=== PATIENT | female | born 1945 | race Caucasian/White ===

== ENCOUNTER 2016-09-27 17:20 | Emergency (ER) | payer MEDICARE, BC ==
[2016-09-27 17:49] VITALS: BP 134/58
[2016-09-27] MEDS ORDERED: HYDROMORPHONE HCL INJ/PF 2 MG/ML AMPULE IM ONE (18:24)
[2016-09-27] MEDS ORDERED: ONDANSETRON 4 MG TAB.RAPDIS PO ONE (18:24)
--- NOTE | 2016-09-27 18:26 | ER Document Report ---
ED Fall - General Information source: Patient - HPI Patient complains to provider of: right hip pain Where: Home Context: Slipped - missing step Location of injury/pain: Hip - right - General Chief Complaint: Fall Stated Complaint: FALL/RIGHT HIP PAIN Time Seen by Provider: 09/27/16 18:15 Notes: 1822 Patient is a 71 year old female who presents to the ED with complaints of a right hip pain that is exacerbated with movement secondary to a fall where patient missed a step causing her to land on her right hip. Patient states this is the worst pain she has ever had. Patient denies hitting her head or any other pain from the fall. Patient is not on blood thinners. Patient had a left hip replacement done on 08/04/2016. Patient is currently on Oxycodone from her left hip replacement. No other concerns or complaints at this time. (JOE RAWLS) - Related data Allergies/Adverse Reactions: morphine Allergy (Verified 09/27/16 18:23) Penicillins Allergy (Verified 09/27/16 18:23) Home Medications: Current Home Medications Alprazolam [Alprazolam] 1 mg PO HSP PRN 09/27/16 [History] Aspirin [Ecotrin 81 mg EC Tablet] 81 mg PO DAILY 09/27/16 [History] Buspirone HCl [Buspar 15 mg Tablet] 7.5 mg PO BID 09/27/16 [History] Calcium Polycarbophil [Fibercon 625 mg Tablet] 625 mg PO DAILY 09/27/16 [History ] Celecoxib [Celebrex 200 mg Capsule] 20 mg PO DAILY 09/27/16 [History] Cholecalciferol (Vitamin D3) [Vitamin D3] 2,000 units PO DAILY 09/27/16 [History ] Cyanocobalamin (Vitamin B-12) [Vitamin B-12] 1,000 mcg PO DAILY 09/27/16 [ History] Duloxetine HCl [Cymbalta] 60 mg PO DAILY 09/27/16 [History] Escitalopram Oxalate [Lexapro 10 mg Tablet] 20 mg PO DAILY 09/27/16 [History] Fesoterodine Fumarate [Toviaz] 8 mg PO DAILY 09/27/16 [History] Fluticasone Propionate [Flonase Nasal [place] 50 Mcg/[place] 16 gm] 2 spray NAREB DAILY 09/27/16 [History] Gabapentin [Gabapentin] 600 mg PO BID 09/27/16 [History] Iron 64 mg PO DAILY 09/27/16 [History] Levothyroxine Sodium 75 mcg PO QHS 09/27/16 [History] Lysine 500 mg PO BID 09/27/16 [History] Magnesium Chloride [Slow-Mag] 64 mg PO DAILY 09/27/16 [History] Metformin HCl [Metformin HCl] 500 mg PO BID 09/27/16 [History] [place]-3/Dha/Epa/Fish Oil [[place] 3 500 Softgel] 1,000 mg PO DAILY 09/27/16 [ History] Oxybutynin Chloride [Ditropan 5 mg Tablet] 10 mg PO QHS 09/27/16 [History] Oxycodone HCl 10 mg PO Q4 PRN 09/27/16 [History] Promethazine HCl [Phenergan 25 mg Tablet] 25 mg PO Q4 PRN 09/27/16 [History] Ropinirole HCl [Ropinirole HCl] 0.5 mg PO QHS 09/27/16 [History] Simvastatin [Simvastatin] 20 mg PO QHS 09/27/16 [History] Tizanidine HCl [Zanaflex] 2 mg PO DAILY 09/27/16 [History] Trazodone HCl 50 mg PO QHS 09/27/16 [History] Vitamin E (Dl,Tocopheryl Acet) [Vitamin E] 1,000 units PO DAILY 09/27/16 [ History] Past Medical History - General Information source: Patient - Social History Smoking Status: Never Smoker Chew tobacco use (# tins/day): No Frequency of alcohol use: None Drug Abuse: None Family History: None - Past Medical History Cardiac Medical History: Reports: Hx Hypertension Denies: Hx Hypercholesterolemia Endocrine Medical History: Denies: Hx Diabetes Mellitus Type 2 Psychiatric Medical History: Reports: Hx Depression Past Surgical History: Reports: Hx Orthopedic Surgery - Left hip, Right shoulder , Right knee Review of Systems - Review of Systems Constitutional: No symptoms reported EENT: No symptoms reported Cardiovascular: No symptoms reported. denies: Chest pain Respiratory: No symptoms reported. denies: Short of breath Gastrointestinal: No symptoms reported. denies: Diarrhea, Nausea, Vomiting Genitourinary: No symptoms reported Female Genitourinary: No symptoms reported Musculoskeletal: See HPI, Joint pain - right hip Skin: No symptoms reported Hematologic/Lymphatic: No symptoms reported Neurological/Psychological: See HPI. denies: Weakness, Numbness, Tingling Physical Exam - Vital signs Vitals: Temp Pulse Resp BP Pulse Ox 98.1 F 66 16 123/56 L 95 09/27/16 17:26 09/27/16 17:26 09/27/16 17:26 09/27/16 17:26 09/27/16 17:26 - Notes Notes: GENERAL: Alert, interacts well. No acute distress. HEAD: Normocephalic, atraumatic. EYES: Pupils equal, round, and reactive to light. Extraocular movements intact. ENT: Oral mucosa moist, tongue midline. NECK: Full range of motion. Supple. Trachea midline. LUNGS: No respiratory distress. HEART: Regular rate and rhythm. No murmurs, gallops, or rubs. ABDOMEN: Soft, non-tender. Non-distended. Bowel sounds present in all 4 quadrants. EXTREMITIES: Moves all 4 extremities spontaneously. No edema, radial and dorsalis pedis pulses 2/4 bilaterally. No cyanosis. tenderness to palpation over right greater trochanter, minimal tenderness to femur, no deformity palpated, no shortening or internal or external rotation of the right leg, good ROM of feet, significant pain with right log roll test, inability to flex at right hip without pain NEUROLOGICAL: Alert and oriented x3. Normal speech. PSYCH: Normal affect, normal mood. SKIN: Warm, dry, normal turgor. No rashes or lesions noted. (JOE RAWLS) Course - [facility]ults [facility] Time consulted: 21:53 Jeanette Moreno Time consulted: 22:07 Dr. Dana Dc Time consulted: 22:30 - Re-evaluation Re-evalutation: 09/27/16 20:20 Patient rechecked: Patient has significant pain with right log roll test, patient is unable to flex right hip without pain 09/27/16 1122 Discussed with patient that [facility] for further treatment for her pelvic fracture is currently being coordinated. Patient requests Dr. Callejas who performed her left hip replacement be contacted instead. (JOE RAWLS) 09/28/16 00:25 Hip and pelvis x-ray reveals no acute fracture dislocation, linear opacity is felt to be gas rather than fracture. Patient still had significant pain and did not even want to attempt walking as it hurt too much to move her right hip so CAT scan was undertaken to look for occult fracture, CAT scan showed comminuted fracture involving the inferior pubic ramus on the right with slight displacement of the fracture fragments as well as cortical irregularity of the anterior acetabulum as well as irregularity and buckling of the anterior portion of the right sacrum suspicious for possible nondisplaced fracture. Patient wished to be transferred to [facility] to see her orthopedic surgeon Dr. Landaverde however when I discussed with Dr. Landaverde he stated he could not do a surgical repair of an acetabular fracture and recommended transfer to a trauma center, [facility] was then contacted and they agreed to accept the patient as a trauma transfer. (TA CONNORS) - Vital Signs Vital signs: Temp Pulse Resp BP Pulse Ox 97.8 F 69 16 134/58 H 95 09/27/16 17:45 09/27/16 17:45 09/27/16 17:45 09/27/16 17:45 09/27/16 17:45 - [facility]ults [facility] Reason for consultation: 09/27/16 2153 Physician will call back regarding transfer of patient for pelvis fracture (JOE RAWLS) [facility] Reason for consultation: 09/27/16 22:07 [facility] is being contacted for possible transfer of patient to Dr. Landaverde, 2215 Patient was not accepted for transfer. (JOE RAWLS) Dr. Dana Dc Reason for consultation: 09/27/16 2230 Patient was discussed with Dr. Dc and was accepted for transfer (JOE RAWLS) Discharge - Discharge Clinical Impression: Fracture of inferior pubic ramus Qualifiers: Encounter type: initial encounter Fracture type: closed Laterality: right Qualified Code(s): S32.591A - Other specified fracture of right pubis, initial encounter for closed fracture Fracture of sacrum Qualifiers: Encounter type: initial encounter Zone of sacrum fracture: zone I of sacrum Fracture type: closed Fracture alignment: nondisplaced Qualified Code(s): S32.110A - Nondisplaced Zone I fracture of sacrum, initial encounter for closed fracture Fracture of right acetabulum Qualifiers: Encounter type: initial encounter Sublocation of acetabulum: unspecified portion of acetabulum Fracture type: closed Fracture alignment: nondisplaced Qualified Code(s): S32.401A - Unspecified fracture of right acetabulum, initial encounter for closed fracture Condition: Good Disposition: [facility] [employer] Documentation - Scribe Written by Presley:: presley Irvin, 09/27/2016, 1834 acting as scribe for :: Keyanna
--- NOTE | 2016-09-27 19:18 | RADIOLOGY REPORT (SQ) ---
EXAM DESCRIPTION: CHEST SINGLE VIEW COMPLETED DATE/TIME: 09/27/2016 6:54 pm REASON FOR STUDY: fall, R hip pain COMPARISON: None. EXAM PARAMETERS: NUMBER OF VIEWS: One view. TECHNIQUE: Single frontal radiographic view of the chest acquired. RADIATION DOSE: NA LIMITATIONS: None. FINDINGS: LUNGS AND PLEURA: No opacities, masses or pneumothorax. No pleural effusion. MEDIASTINUM AND HILAR STRUCTURES: No masses. Contour normal. HEART AND VASCULAR STRUCTURES: Heart normal in size. Normal vasculature. BONES: Partially visualized right total shoulder arthroplasty. No acute fracture. Degenerative nobles ges noted in both acromioclavicular joint. Degenerative changes noted in thoracic spine. HARDWARE: None in the chest. OTHER: No other significant finding. IMPRESSION: NO ACUTE RADIOGRAPHIC FINDING IN THE CHEST. TECHNICAL DOCUMENTATION: JOB ID: [id number]
--- NOTE | 2016-09-27 19:21 | RADIOLOGY REPORT (SQ) ---
EXAM DESCRIPTION: HIP RIGHT AP/LATERAL COMPLETED DATE/TIME: 09/27/2016 6:54 pm REASON FOR STUDY: fall, R hip pain COMPARISON: None. NUMBER OF VIEWS: Two views. TECHNIQUE: AP pelvis and additional frog-leg view of the right hip. LIMITATIONS: None. FINDINGS: MINERALIZATION: Osteopenia. RIGHT HIP: No fracture or dislocation. No worrisome bone lesions. Mild degenerative joint space bertin rowing. Small degenerative osteophytes noted. LEFT HIP: Left total hip arthroplasty noted. No evidence of hardware complication. No fracture or d islocation. PUBIS AND ISCHIUM: The linear opacity through the inferior pubic rami on the right it appears to exte nd beyond the cortex is likely overlapping gas. No acute fracture dislocation identified. [place] d fracture of the left inferior pubic ramus. PELVIS: No fracture. SACRUM: No fracture or dislocation. No worrisome bone lesions.SI joint degenerative change. LOWER LUMBAR SPINE: No fracture or dislocation. No worrisome bone lesions. Degenerative disc disease per SOFT TISSUES: No acute findings. Pelvic phleboliths. OTHER: No other significant finding. IMPRESSION: No acute fracture or dislocation identified in the right hip. Left total hip arthroplas ty noted without visualized complication TECHNICAL DOCUMENTATION: JOB ID: [id number] [employer]- All Rights Reserved
--- NOTE | 2016-09-27 21:01 | RADIOLOGY REPORT (SQ) ---
EXAM DESCRIPTION: CT PELVIS WITHOUT COMPLETED DATE/TIME: 09/27/2016 8:47 pm REASON FOR STUDY: right hip pain after fall COMPARISON: None. TECHNIQUE: CT scan of the pelvis performed without intravenous or oral contrast. Images reviewed wi soft tissue and bone windows. Reconstructed coronal and sagittal MPR images reviewed. All images stored on PACS. All CT scanners at this facility use dose modulation, iterative reconstruction, and/or weight based d osing when appropriate to reduce radiation dose to as low as reasonably achievable (ALARA). [facility]: Dose Right [facility]: CareDose [facility]: Dose Right [facility]: Teradose 4D [facility]: Smart [employer] RADIATION DOSE: Up-to-date CT equipment and radiation dose reduction techniques were employed. CTDIv ol: 33.2 mGy. DLP: 1207 mGy-cm. mGy. LIMITATIONS: None. FINDINGS: PELVIC BONES: There is a fracture involving the inferior pubic ramus with slight displacem ent of the fracture fragments. There is also fracture appears to involve the anterior portion of the acetabulum on the right with extension into the joint space. There is slight buckle deformity of th e sacrum on the right (series 2, image 29) question possible cyst small nondisplaced fracture. No ot her fractures identified. VISUALIZED SPINE: No acute findings. HIP(S): Left total hip arthroplasty noted which appears to be intact. No fracture identified on the right. PELVIC SOFT TISSUES: No significant findings. Extensive vascular calcifications noted. EXTRAPELVIC SOFT TISSUES: No significant findings. OTHER: No other significant finding. IMPRESSION: Comminuted fracture involving the inferior pubic ramus on the right slight displacement of the fracture fragments. There is some cortical regularity of the anterior acetabulum on the right which could represent small nondisplaced fracture. There is also some irregularity/buckling of the anterior portion of the right sacrum questionable for possible nondisplaced fracture. No other fract ures are identified. TECHNICAL DOCUMENTATION: JOB ID: [id number] Quality ID # [id number]: Final reports with documentation of one or more dose reduction techniques (e.g., Au tomated exposure control, adjustment of the mA and/or kV according to patient size, use of iterative reconstruction technique) 2010 [employer]- All Rights Reserved
[2016-09-27] MEDS ORDERED: GABAPENTIN 300 MG CAPSULE PO ONE (23:58)
[2016-09-27] MEDS ORDERED: LEVOTHYROXINE SODIUM 0.075 MG TABLET PO ONE (23:58)
[2016-09-27] MEDS ORDERED: OXYCODONE HCL SR 10 MG TABLET PO ONE (23:58)
[2016-09-27] MEDS ORDERED: OXYBUTYNIN CHLORIDE 5 MG TABLET PO ONE (23:58)
[2016-09-27] MEDS ORDERED: BUSPIRONE HCL 10 MG TABLET PO ONE (23:58)
[2016-09-27] MEDS ORDERED: TRAZODONE HCL 50 MG TABLET PO ONE (23:58)
[2016-09-27] MEDS ORDERED: ALPRAZOLAM 0.5 MG TABLET PO ONE (23:58)
[2016-09-27] MEDS ORDERED: ROPINIROLE HCL 0.25 MG TABLET PO ONE (23:58)
[2016-09-27] MEDS ORDERED: SIMVASTATIN 10 MG TABLET PO ONE (23:58)
[2016-09-27] MEDS ORDERED: METFORMIN HCL 500 MG TABLET PO ONE (23:58)
[2016-09-28] MEDS ORDERED: ROPINIROLE HCL 0.25 MG TABLET ONE (00:44)
== END 2016-09-28 04:03 | disposition short-term general hospital (02) ==
LOC: ER 17:20
DX: S32.591A Other specified fracture of right pubis, initial encounter for closed fracture (principal); S32.110A Nondisplaced Zone I fracture of sacrum, initial encounter for closed fracture; S32.401A Unspecified fracture of right acetabulum, initial encounter for closed fracture; W10.9XXA Fall (on) (from) unspecified stairs and steps, initial encounter; Y92.009 Unspecified place in unspecified non-institutional (private) residence as the place of occurrence of the external cause; I10 Essential (primary) hypertension; E11.9 Type 2 diabetes mellitus without complications; Z96.642 Presence of left artificial hip joint; Z88.6 Allergy status to analgesic agent; Z88.0 Allergy status to penicillin; Z79.84 Long term (current) use of oral hypoglycemic drugs
CPT/HCPCS: 99285; 96372; 71010; 73502; 72192; A9270 ×10; J1170; S0119

== ENCOUNTER → 2019-12-17 | Outpatient (CLI) | payer MEDICARE, OTHER ==
--- NOTE | 2019-12-17 12:35 | RADIOLOGY REPORT (SQ) ---
EXAM DESCRIPTION: FOOT LEFT COMPLETE IMAGES COMPLETED DATE/TIME: 12/17/2019 12:02 pm REASON FOR STUDY: (M79.672)PAIN IN LEFT FOOT M79.672 PAIN IN LEFT FOOT COMPARISON: None. NUMBER OF VIEWS: Three views. TECHNIQUE: AP, lateral and oblique radiographic images acquired of the left foot. LIMITATIONS: None. FINDINGS: MINERALIZATION: Normal. BONES: There is an old fracture of the 5th metatarsal. There is a small plantar calcaneal spur. No acute fracture or dislocation. JOINTS: No effusions. SOFT TISSUES: No soft tissue swelling. No foreign body. OTHER: No other significant finding. IMPRESSION: Calcaneal spur. Former fracture. No acute finding. TECHNICAL DOCUMENTATION: JOB ID: [id number] 2010 [employer]- All Rights Reserved Reading location - IP/workstation name: [email or web address]
== END ==
LOC: RAD 11:41
DX: M79.672 Pain in left foot (principal)